=== PATIENT | female | born 1985 | race Caucasian/White ===

== ENCOUNTER 2021-11-13 18:30 | Emergency (ER) | payer MEDICAID ==
[~2021-11-13] VITALS: Ht 160 cm; Wt 80.7 kg
[2021-11-13 18:40] VITALS: BP 152/95
--- NOTE | 2021-11-13 19:55 | NUR ---
Patient discharged with v/s stable. Written and verbal after care instructions given and explained. Patient verbalized understanding. Ambulatory with steady gait. All questions addressed prior to discharge. Advised to follow up with PMD.
--- NOTE | 2021-11-13 20:10 | NUR ---
AT REQUEST OF DR. LOBO PT CALLED BACK AFTER DISCHARGE FOR SLING PLACEMENT. PT RETURNED AND SLING PLACED TO PT RT ARM.
== END 2021-11-13 19:55 | disposition home or self-care (01) ==
LOC: MED 18:30
DX: S43.102A Unspecified dislocation of left acromioclavicular joint, initial encounter (principal); Y04.8XXA Assault by other bodily force, initial encounter; Y93.89 Activity, other specified; Y92.89 Other specified places as the place of occurrence of the external cause; Y99.8 Other external cause status
CPT/HCPCS: 73030; 99283

== ENCOUNTER 2021-11-28 04:01 | Emergency (ER) | payer MEDICAID ==
--- NOTE | 2021-11-28 04:24 | NUR ---
PT STATED IM GOING HOME
== END 2021-11-28 04:25 | disposition left against medical advice (07) ==
LOC: MED 04:01
DX: R10.9 Unspecified abdominal pain (principal); Z53.21 Procedure and treatment not carried out due to patient leaving prior to being seen by health care provider